=== PATIENT | female | born 1995 | race African-American/Black ===

== ENCOUNTER 2022-11-19 09:10 | Emergency (ER) | payer MEDICAID ==
[~2022-11-19] VITALS: Ht 167.6 cm; Wt 54.4 kg
[2022-11-19] MEDS ORDERED: SODIUM CHLORIDE 0.9% 1,000 ML IV ONE ×2 (10:00→13:00)
[2022-11-19] MEDS ORDERED: METOCLOPRAMIDE HCL 10MG/2ML VIAL IV ONE (10:00)
[2022-11-19 10:10] LABS: BASOPHILS % 0.4 % (0.0-2.0); EOSINOPHILS % 0.9 % (0.0-5.0); HEMATOCRIT. 33.6 % (36.0-48.0); LYMPHOCYTES % 9.6 % (20.0-50.0); MEAN CORPUSCULAR HEMOGLOBIN 28.7 pg (28.0-32.0); MEAN CORPUSCULAR VOLUME 87.8 fL (81.0-99.0); MONOCYTES % 3.7 % (2.0-8.0); NEUTROPHILS % 85.4 % (40.0-76.0); PLATELET 234 x1000/uL (130-400); RED BLOOD CELL COUNT 3.83 mill/uL (4.2-5.4); RED CELL DISTRIBUTION WIDTH 15.3 % (11.6-14.6)
[2022-11-19 10:16] LABS: CHLORIDE 106 mEq/L (98-107)
[2022-11-19 10:41] LABS: B-HCG QUANTITATIVE 47201 mIU/mL (<3)
[2022-11-19] MEDS ORDERED: PYRIDOXINE HCL 50MG TABLET PO ONE (12:00)
[2022-11-19 12:22] LABS: CLARITY URINE CLEAR (CLEAR); COLOR URINE YELLOW (YELLOW); KETONES URINE 2+ (NEGATIVE); LEUKOCYTE ESTERASE URINE NEGATIVE (NEGATIVE); NITRITE URINE NEGATIVE (NEGATIVE); OCCULT BLOOD URINE NEGATIVE (NEGATIVE); PH URINE 8.5 (4.5-8.0); PROTEIN URINE TRACE (NEGATIVE); SPECIFIC GRAVITY URINE 1.025 (1.005-1.030); UROBILINOGEN URINE 0.2 E.U./dL (0.2-1.0)
[2022-11-19] MEDS ORDERED: ONDANSETRON HCL 4MG/2ML INJ IV STA (12:58)
[2022-11-19] MEDS ORDERED: ONDA4TAB50 MT (14:30)
[2022-11-19] MEDS ORDERED: DOXY1TAB3 MT (14:30)
[2022-11-19] MEDS ORDERED: METO5TAB86 MT (14:30)
[2022-11-19 14:45] VITALS: BP 122/78
== END 2022-11-19 14:45 | disposition home or self-care (01) ==
LOC: ER 09:10
DX: O26.891 Other specified pregnancy related conditions, first trimester (principal); O21.0 Mild hyperemesis gravidarum; O20.0 Threatened abortion; Z3A.01 Less than 8 weeks gestation of pregnancy; Z98.890 Other specified postprocedural states
CPT/HCPCS: 36415; 76801; 80053; 81003; 84702; 85025; 96361; 96374; 96375; 99285; J2405; J2765; J7030; Z7610

== ENCOUNTER 2022-11-20 14:04 | Emergency (ER) | payer MEDICAID ==
[~2022-11-20] VITALS: Ht 177.8 cm; Wt 68.0 kg
[~2022-11-20 14:04] MED LIST: DOXY1TAB3 MT; METO5TAB86 MT; ONDA4TAB50 MT
[2022-11-20 14:20] VITALS: BP 130/70
== END 2022-11-20 18:58 | disposition left against medical advice (07) ==
LOC: ER 14:04
DX: Z53.21 Procedure and treatment not carried out due to patient leaving prior to being seen by health care provider (principal)
CPT/HCPCS: 93005